=== PATIENT | female | born 1965 | race Caucasian/White ===

== ENCOUNTER 2022-03-31 16:26 | Inpatient (IN) ==
[2022-03-31 20:18] LABS: Albumin 4.1 G/DL (3.4-5.0); Bilirubin,Total 0.9 MG/DL (0.20-1.00); Calcium 9.7 MG/DL (8.5-10.1); Osmolality,Calculated 271.4 MOS/KG (273-304); Potassium 3.5 MMOL/L (3.5-5.1); Total Protein 7.5 G/DL (6.4-8.2)
[2022-03-31 20:20] LABS: Basophils # 0.1 10*3/uL (0.0-0.2); Basophils % 0.6 % (0.0-0.8); Eosinophils % 0.2 % (0.00-10.9); Hematocrit 25.5 VOL% (35.7-47.0); Hemoglobin 6.6 GM/DL (12.0-16.0); Immature Granulocytes % 2.3 %; Immature Granulocytes Absolute 0.29 #; Lymphocytes # 1.6 10*3/uL (1.4-4.0); Lymphocytes % 13.2 % (21.3-54.2); Mean Corpuscular HGB Conc 25.9 GM/DL (32-36); Mean Corpuscular Volume 56.7 FL (87-102); Monocytes # 0.7 10*3/uL (0.11-0.8); Monocytes % 5.7 % (1.7-12.7); Platelet Count 253 T/CUMM (130-400); Red Cell Distribution Width 21.9 % (9.3-17.3); White Blood Count 12.38 T/CUMM (4-12)
[2022-03-31 20:44] LABS: Urine Appearance Clear (Clear); Urine Color Yellow (Yellow); Urine pH 5.5 (4.5-8.0)
[2022-03-31 20:45] LABS: Bilirubin,Urine Negative (Negative); Blood, Urine Negative (Negative); Glucose,Urine (UA) Negative (Negative); Ketones,Urine 40 mg/dL (Negative); Nitrite,Urine Negative (Negative); Protein,Urine Negative (Negative); Urine Specific Gravity 1.015 (1.001-1.035); Urine Urobilinogen 0.2 eU/dL (<2.0)
[2022-03-31 20:47] LABS: Bacteria,Urine Occasional /HPF (Few); Mucus,Urine Occasional /LPF (Occasional); RBC,Urine 1 /HPF (0-4); Squamous Epithelial Cell,Urine Occasional /HPF (0-10); Transitional Epi Cells,Urine Occasional /HPF (<1)
[2022-03-31] MEDS ORDERED: ACETAMINOPHEN 325 MG TABLET PO PRN (22:30)
[2022-03-31] MEDS ORDERED: hydrALAZINE 20 MG/1 ML VIAL IV PRN (22:30)
[2022-03-31] MEDS ORDERED: MORPHINE 2 MG/1 ML SYRINGE IV PRN (22:30)
[2022-03-31] MEDS ORDERED: LORazepam 1 MG TABLET PO PRN (22:30)
[2022-03-31] MEDS ORDERED: SODIUM CHLORIDE 0.9% 1,000 ML IV STA (22:33)
[2022-03-31] MEDS ORDERED: SODIUM CHLORIDE 0.9% 1,000 ML IV PRN (22:40)
[2022-03-31 23:07] LABS: Ferritin 2.3 ng/mL (8-252)
[2022-03-31 23:11] LABS: Folate > 24.00 NG/ML (5.38-24.0); Vitamin B12 661 PG/ML (211-911)
[2022-04-01] MEDS: INSULIN LISPRO 100 UNIT/ML SUBCUT SCH ×6 (01:43→22:16)
[2022-04-01] MEDS: PANTOPRAZOLE 40 MG VIAL IV SCH ×3 (01:43→22:16)
[2022-04-01] MEDS: SODIUM CHLORIDE 0.9% 1,000 ML IV SCH ×3 (02:36→15:19)
[2022-04-01 07:29] LABS: Basophils # 0.1 10*3/uL (0.0-0.2); Basophils % 0.7 % (0.0-0.8); Eosinophils # 0.1 10*3/uL (0.0-0.87); Eosinophils % 0.6 % (0.00-10.9); Hematocrit 30.4 VOL% (35.7-47.0); Hemoglobin 8.4 GM/DL (12.0-16.0); Immature Granulocytes % 1.7 %; Lymphocytes # 2.3 10*3/uL (1.4-4.0); Lymphocytes % 18.7 % (21.3-54.2); Mean Corpuscular HGB Conc 27.6 GM/DL (32-36); Mean Corpuscular Volume 62.2 FL (87-102); Monocytes # 1.1 10*3/uL (0.11-0.8); Monocytes % 9.5 % (1.7-12.7); NRBC # 0.03 10*3/uL; Neutrophils % 68.8 % (38.7-73.9); Platelet Count 250 T/CUMM (130-400); Red Blood Count 4.89 MC/CUMM (3.8-5.5); Red Cell Distribution Width 28.2 % (9.3-17.3); White Blood Count 12.05 T/CUMM (4-12)
[2022-04-01 07:44] LABS: Calcium 9.3 MG/DL (8.5-10.1); Osmolality,Calculated 280.3 MOS/KG (273-304); Potassium 3.6 MMOL/L (3.5-5.1)
[2022-04-01] MEDS ORDERED: FERROUS SULFATE 325 MG TABLET PO SCH (10:30)
[2022-04-01] MEDS: LOSARTAN 50 MG TABLET PO SCH (12:00)
[2022-04-01] MEDS: ESCITALOPRAM 10 MG TABLET PO SCH (12:00)
[2022-04-01] MEDS ORDERED: INSULIN GLARGINE 100 UNIT/ML SUBCUT SCH (21:00)
[2022-04-01] MEDS ORDERED: FERRIC GLUCONATE COMPLEX 125 MG in SODIUM CHLORIDE 0.9% 100 ML IV ONE (21:00)
[2022-04-01] MEDS: ZALEPLON 5 MG CAPSULE PO SCH ×2 (22:08→22:33)
[2022-04-02] MEDS: INSULIN LISPRO 100 UNIT/ML SUBCUT SCH ×6 (00:33→20:34)
[2022-04-02 05:27] LABS: Basophils # 0.1 10*3/uL (0.0-0.2); Basophils % 0.7 % (0.0-0.8); Eosinophils # 0.1 10*3/uL (0.0-0.87); Eosinophils % 0.5 % (0.00-10.9); Hematocrit 31.4 VOL% (35.7-47.0); Hemoglobin 8.6 GM/DL (12.0-16.0); Immature Granulocytes % 1.4 %; Immature Granulocytes Absolute 0.17 #; Lymphocytes # 1.7 10*3/uL (1.4-4.0); Lymphocytes % 14.4 % (21.3-54.2); Mean Corpuscular HGB Conc 27.4 GM/DL (32-36); Mean Corpuscular Volume 62.5 FL (87-102); Monocytes % 8.4 % (1.7-12.7); NRBC # 0.02 10*3/uL; Neutrophils % 74.6 % (38.7-73.9); Platelet Count 256 T/CUMM (130-400); Red Blood Count 5.02 MC/CUMM (3.8-5.5); Red Cell Distribution Width 28.3 % (9.3-17.3); White Blood Count 11.98 T/CUMM (4-12)
[2022-04-02 05:41] LABS: Calcium 9.4 MG/DL (8.5-10.1); Osmolality,Calculated 283.3 MOS/KG (273-304); Potassium 3.3 MMOL/L (3.5-5.1)
[2022-04-02 05:56] LABS: Hypochromia 1+; Microcytosis 2+; Ovalocytes Slight; Polychromasia Slight; Spherocytes Slight
[2022-04-02 05:57] LABS: Platelet Estimate Normal
[2022-04-02] MEDS: SODIUM CHLORIDE 0.9% 1,000 ML IV SCH ×3 (07:49→22:09)
[2022-04-02] MEDS: PANTOPRAZOLE 40 MG VIAL IV SCH ×2 (08:35→21:44)
[2022-04-02] MEDS: LOSARTAN 50 MG TABLET PO SCH ×2 (08:36→21:44)
[2022-04-02] MEDS ORDERED: FERRIC GLUCONATE COMPLEX 125 MG in SODIUM CHLORIDE 0.9% 100 ML IV SCH (09:00)
[2022-04-02] MEDS ORDERED: POTASSIUM CHLORIDE 20 MEQ TABLET PO ONE (14:00)
[2022-04-02] MEDS ORDERED: ALPRAZolam 0.5 MG TABLET PO ONE (14:00)
[2022-04-02] MEDS: LACTATED RINGERS 1,000 ML IV SCH (14:02)
[2022-04-02] MEDS: ESCITALOPRAM 10 MG TABLET PO SCH (14:26)
[2022-04-02] MEDS ORDERED: sitaGLIPtin 25 MG TABLET PO SCH (21:00)
[2022-04-02] MEDS: ZALEPLON 5 MG CAPSULE PO SCH (21:42)
[2022-04-02] MEDS: ALPRAZolam 0.5 MG TABLET PO SCH (21:44)
[2022-04-03] MEDS: INSULIN LISPRO 100 UNIT/ML SUBCUT SCH ×6 (00:50→20:04)
[2022-04-03 06:03] LABS: Calcium 8.9 MG/DL (8.5-10.1); Osmolality,Calculated 288.6 MOS/KG (273-304); Potassium 3.1 MMOL/L (3.5-5.1)
[2022-04-03 06:19] LABS: Basophils # 0.1 10*3/uL (0.0-0.2); Basophils % 0.8 % (0.0-0.8); Eosinophils # 0.2 10*3/uL (0.0-0.87); Hemoglobin 7.7 GM/DL (12.0-16.0); Immature Granulocytes % 0.8 %; Immature Granulocytes Absolute 0.07 #; Lymphocytes # 2.6 10*3/uL (1.4-4.0); Lymphocytes % 28.4 % (21.3-54.2); Mean Corpuscular HGB Conc 27.2 GM/DL (32-36); Mean Corpuscular Volume 63.7 FL (87-102); Monocytes # 0.9 10*3/uL (0.11-0.8); Monocytes % 9.9 % (1.7-12.7); Neutrophils % 58.1 % (38.7-73.9); Platelet Count 224 T/CUMM (130-400); Red Blood Count 4.44 MC/CUMM (3.8-5.5); Red Cell Distribution Width 28.5 % (9.3-17.3); White Blood Count 9.13 T/CUMM (4-12)
[2022-04-03] MEDS: SODIUM CHLORIDE 0.9% 1,000 ML IV SCH ×2 (06:19→16:09)
[2022-04-03 06:22] LABS: Hematocrit 28.3 VOL% (35.7-47.0)
[2022-04-03] MEDS: LACTATED RINGERS 1,000 ML IV SCH (07:42)
[2022-04-03] MEDS ORDERED: LIDOCAINE 2% 5 ML VIAL ONE (07:55)
[2022-04-03] MEDS ORDERED: propofoL 200 MG/20 ML VIAL IV ONE ×2 (07:55→08:36)
[2022-04-03] MEDS ORDERED: MAGNESIUM SULF RIDER 2 GM/50 ML PREMIX IV ONE (09:00)
[2022-04-03] MEDS: POTASSIUM CHLORIDE 20 MEQ TABLET PO SCH ×3 (09:46→20:32)
[2022-04-03] MEDS: LOSARTAN 50 MG TABLET PO SCH (09:48)
[2022-04-03] MEDS: ESCITALOPRAM 10 MG TABLET PO SCH (09:48)
[2022-04-03] MEDS: PANTOPRAZOLE 40 MG VIAL IV SCH ×2 (09:48→20:33)
[2022-04-03] MEDS: ALPRAZolam 0.5 MG TABLET PO SCH ×3 (09:48→20:33)
[2022-04-03] MEDS ORDERED: BISACODYL 5 MG TABLET PO ONE (15:00)
[2022-04-03] MEDS ORDERED: SODIUM CHLORIDE 0.9% 1,000 ML IV PRN (15:00)
[2022-04-03] MEDS ORDERED: POLYETHYLENE GLYCOL POWDER 255 GM BOTTLE PO ONE (18:00)
[2022-04-03] MEDS: ZALEPLON 5 MG CAPSULE PO SCH (20:33)
[2022-04-04] MEDS: INSULIN LISPRO 100 UNIT/ML SUBCUT SCH ×6 (00:50→21:29)
[2022-04-04] MEDS ORDERED: POLYETHYLENE GLYCOL POWDER 255 GM BOTTLE PO ONE (05:00)
[2022-04-04] MEDS: POLYETHYLENE GLYCOL POWDER 255 GM BOTTLE PO ONE ×2 (05:45→05:46)
[2022-04-04 06:20] LABS: Calcium 8.9 MG/DL (8.5-10.1); Osmolality,Calculated 283.8 MOS/KG (273-304); Potassium 3.7 MMOL/L (3.5-5.1)
[2022-04-04 06:46] LABS: Basophils # 0.1 10*3/uL (0.0-0.2); Basophils % 0.9 % (0.0-0.8); Eosinophils # 0.2 10*3/uL (0.0-0.87); Eosinophils % 2.1 % (0.00-10.9); Hematocrit 31.7 VOL% (35.7-47.0); Immature Granulocytes % 1.3 %; Immature Granulocytes Absolute 0.11 #; Lymphocytes # 2.2 10*3/uL (1.4-4.0); Lymphocytes % 25.4 % (21.3-54.2); Mean Corpuscular HGB Conc 27.4 GM/DL (32-36); Mean Corpuscular Volume 66.2 FL (87-102); Monocytes # 0.8 10*3/uL (0.11-0.8); Monocytes % 8.9 % (1.7-12.7); Neutrophils % 61.4 % (38.7-73.9); Platelet Count 212 T/CUMM (130-400); Red Blood Count 4.79 MC/CUMM (3.8-5.5); Red Cell Distribution Width 30.7 % (9.3-17.3); White Blood Count 8.67 T/CUMM (4-12)
[2022-04-04 06:47] LABS: Hemoglobin 8.7 GM/DL (12.0-16.0)
[2022-04-04] MEDS: LOSARTAN 25 MG TABLET PO SCH (10:18)
[2022-04-04] MEDS: ESCITALOPRAM 10 MG TABLET PO SCH (10:19)
[2022-04-04] MEDS: POTASSIUM CHLORIDE 20 MEQ TABLET PO SCH ×2 (10:19→15:04)
[2022-04-04] MEDS: ALPRAZolam 0.5 MG TABLET PO SCH ×3 (10:19→21:29)
[2022-04-04] MEDS: sitaGLIPtin 25 MG TABLET PO SCH (10:19)
[2022-04-04] MEDS: LACTATED RINGERS 1,000 ML IV SCH (12:44)
[2022-04-04] MEDS ORDERED: LIDOCAINE 2% 5 ML VIAL ONE (14:11)
[2022-04-04] MEDS ORDERED: propofoL 200 MG/20 ML VIAL IV ONE (14:11)
[2022-04-04] MEDS: PANTOPRAZOLE 40 MG VIAL IV SCH ×2 (15:00→21:30)
[2022-04-04] MEDS: ZALEPLON 5 MG CAPSULE PO SCH (21:29)
[2022-04-05] MEDS: INSULIN LISPRO 100 UNIT/ML SUBCUT SCH ×4 (00:42→12:00)
[2022-04-05 06:06] LABS: Calcium 9.1 MG/DL (8.5-10.1); Osmolality,Calculated 276.4 MOS/KG (273-304); Potassium 4.5 MMOL/L (3.5-5.1)
[2022-04-05 06:48] LABS: Basophils # 0.1 10*3/uL (0.0-0.2); Basophils % 0.9 % (0.0-0.8); Eosinophils # 0.2 10*3/uL (0.0-0.87); Eosinophils % 2.1 % (0.00-10.9); Hemoglobin 9.2 GM/DL (12.0-16.0); Immature Granulocytes % 1.3 %; Immature Granulocytes Absolute 0.11 #; Lymphocytes # 2.5 10*3/uL (1.4-4.0); Lymphocytes % 28.9 % (21.3-54.2); Mean Corpuscular HGB Conc 27.3 GM/DL (32-36); Mean Corpuscular Volume 67.4 FL (87-102); Monocytes # 0.9 10*3/uL (0.11-0.8); Neutrophils % 56.8 % (38.7-73.9); Platelet Count 204 T/CUMM (130-400); Red Cell Distribution Width 31.8 % (9.3-17.3); White Blood Count 8.74 T/CUMM (4-12)
[2022-04-05 06:50] LABS: Hematocrit 33.7 VOL% (35.7-47.0)
[2022-04-05] MEDS ORDERED: FERROUS SULFATE 325 MG TABLET PO SCH (09:00)
[2022-04-05] MEDS: LOSARTAN 25 MG TABLET PO SCH (09:49)
[2022-04-05] MEDS: sitaGLIPtin 25 MG TABLET PO SCH (09:49)
[2022-04-05] MEDS: ALPRAZolam 0.5 MG TABLET PO SCH (09:49)
[2022-04-05] MEDS: ESCITALOPRAM 10 MG TABLET PO SCH (09:49)
[2022-04-05] MEDS: PANTOPRAZOLE 40 MG VIAL IV SCH (09:51)
[2022-04-05] MEDS: LACTATED RINGERS 1,000 ML IV SCH (09:53)
[2022-04-05 12:14] VITALS: BP 145/83
== END 2022-04-05 13:38 | disposition home or self-care (01) | DRG 378 ==
LOC: N.ED 16:26 → N.EDINP 22:30 → N.3E 04-01 15:06
PROVIDERS: ADMIT Hospitalist; ATTEND Hospitalist